=== PATIENT | male | born 1970 | race Caucasian/White ===

== ENCOUNTER 2020-02-18 12:30 | Emergency (ER) | payer OTHER ==
[2020-02-18 12:39] VITALS: RESP 18
--- NOTE | 2020-02-18 13:33 | XR ---
EXAMINATION TYPE: XR forearm LT DATE OF EXAM: 02/18/2020 CLINICAL HISTORY: Fall injury with pain TECHNIQUE: Two views of the left forearm are obtained. COMPARISON: None. FINDINGS: There is acute comminuted displaced intra-articular fracture through the distal radial met aphysis. Some impaction and dorsal angulation of distal fracture fragment. Acute avulsion type fractu re from the ulnar styloid. No additional proximal fracture. Overlying soft tissue is unremarkable. IMPRESSION: As above.
--- NOTE | 2020-02-18 13:39 | ED ---
General Adult HPI - General Chief complaint: Extremity Injury, Upper Stated complaint: L Arm Injury Time Seen by Provider: 02/18/20 12:42 Source: patient, RN notes reviewed, old records reviewed Mode of arrival: ambulatory Limitations: no limitations - History of Present Illness Initial comments: 49-year-old male presenting for reevaluation of left forearm injury which occurred approximately 2 weeks ago. Patient was seen at outside emergency department diagnosed with fracture, splint was placed and the patient was asked to follow up with orthopedics. He had been unable to follow-up as 0 was no coverage in the [place]. He is presenting for evaluation of this injury. He had trapped his left wrist in a bookcase. No head or neck trauma. He has not been taking any medication. He has been removing a splint daily. He was in a posterior upper extremity splint. - Related Data Home Medications Medication Instructions Recorded Confirmed HYDROcodone/APAP 5-325MG [[place] 1 tab PO TID PRN 10/17/16 10/17/16 5-325] Lansoprazole [Prevacid] 30 mg PO DAILY 10/17/16 10/17/16 Previous Rx's Medication Instructions Recorded HYDROcodone/APAP 5-325MG [[place] 1 tab PO Q6HR PRN #12 tab 02/18/20 5-325] Ibuprofen [Motrin] 600 mg PO Q8HR PRN #24 tab 02/18/20 Allergies Allergy/AdvReac Type Severity Reaction Status Date / Time No Known Allergies Allergy Verified 02/18/20 12:36 Review of Systems ROS Statement: Those systems with pertinent positive or pertinent negative responses have been documented in the HPI. ROS Other: All systems not noted in ROS Statement are negative. Past Medical History Past Medical History: GERD/Reflux Additional Past Medical History / Comment(s): degenerative disk disease, "smashed disks in back"-pinched nerve History of Any Multi-Drug Resistant Organisms: None Reported Past Surgical History: Tonsillectomy Past Anesthesia/Blood Transfusion Reactions: No Reported Reaction Past Psychological History: ADD/ADHD Smoking Status: Never smoker Past Alcohol Use History: Daily Past Drug Use History: None Reported - Past Family History Mother Family Medical History: No Reported History General Exam Limitations: no limitations General appearance: alert, in no apparent distress Head exam: Present: atraumatic Eye exam: Present: normal appearance, PERRL ENT exam: Present: normal exam Neck exam: Present: normal inspection. Absent: tenderness, meningismus Respiratory exam: Present: normal lung sounds bilaterally. Absent: respiratory distress, wheezes Cardiovascular Exam: Present: regular rate, normal rhythm GI/Abdominal exam: Present: soft. Absent: distended, tenderness Extremities exam: Present: joint swelling (Left wrist is swollen, distal pulses intact, normal cap refill, normal sensation in the hand.) Course Vital Signs 02/18/20 12:36 Temperature 98 F Pulse Rate 104 H Respiratory 18 Rate Blood Pressure 126/89 O2 Sat by Pulse 100 Oximetry Procedures - Orthopedic Splinting/Casting Injury #1 Side: left Upper Extremity Injury Location: wrist Upper Extremity Immobilizer: sugar tong splint, synthetic pre-padded splint, fiberglass cast Medical Decision Making - Medical Decision Making 49-year-old male with left wrist injury which occurred 2 weeks ago. X-ray confirming a distal radius fracture, impacted, intra-articular as well as an ulnar styloid fracture. Patient is placed in a splint in the emergency department. He is prescribed anti-inflammatories and pain medication and is given orthopedic follow-up in this area. Disposition Clinical Impression: Distal radius fracture, left, Fracture of ulnar styloid Disposition: HOME SELF-CARE Condition: Fair Instructions (If sedation given, give patient instructions): Wrist Injury (ED), Arm Fracture in Adults (ED), Wrist Fracture in Adults (ED) Prescriptions: Ibuprofen [Motrin] 600 mg PO Q8HR PRN #24 tab PRN Reason: Pain HYDROcodone/APAP 5-325MG [[place] 5-325] 1 tab PO Q6HR PRN #12 tab PRN Reason: Pain Is patient prescribed a controlled substance at d/c from ED?: No Referrals: Abhijit Oswald DO [Primary Care Provider] - 1-2 days Mohinder Velez DO [Doctor of Osteopathic Medicine] - 1-2 days Time of Disposition: 13:38
[2020-02-18 14:04] VITALS: BP 108/79; PULSE 97; TEMP 98.1
== END 2020-02-18 14:04 | disposition home or self-care (01) ==
LOC: EC 12:30
DX: S52.572A Other intraarticular fracture of lower end of left radius, initial encounter for closed fracture (principal); S52.612A Displaced fracture of left ulna styloid process, initial encounter for closed fracture; K21.9 Gastro-esophageal reflux disease without esophagitis; Z79.899 Other long term (current) drug therapy; X58.XXXA Exposure to other specified factors, initial encounter
CPT/HCPCS: 29125; 99284